=== PATIENT | male | born 1940 | race Caucasian/White ===

== ENCOUNTER 2023-06-22 17:28 | Emergency (ER) | payer OTHER ==
[2023-06-22 18:10] VITALS: BMI 22.3
[2023-06-22 19:16] LABS: HEMATOCRIT 31.5 % (35.4-49); MCHC 31.7 g/dl (32.0-35.9); MEAN CELL VOLUME 97.4 fl (80-96); MEAN PLT VOLUME 7.9 fl (7.5-11.1); PLATELET COUNT 669.2 10^3/uL (134-434); RBC 3.23 10^6/uL (4.00-5.60); RDW 16.6 % (11.9-15.9); WHITE BLOOD COUNT 10.3 10^3/uL (4.0-10.8)
[2023-06-22 19:31] LABS: ALBUMIN 3.8 g/dl (3.4-5.0); BILIRUBIN,TOTAL 0.6 mg/dl (0.2-1); CALCIUM 9.1 mg/dl (8.5-10.1); CREATININE 0.8 mg/dl (0.6-1.3); MAGNESIUM 2.1 mg/dL (1.8-2.4); POTASSIUM 4.5 mmol/L (3.5-5.1)
[2023-06-22 20:19] LABS: PLATELET ESTIMATE INCREASED
[2023-06-22 23:26] VITALS: BP 122/56; PULSE 72; RESP 18; TEMP 97.5
== END 2023-06-22 23:56 ==
LOC: FER 17:28
DX: S02.2XXA Fracture of nasal bones, initial encounter for closed fracture (principal); S09.90XA Unspecified injury of head, initial encounter; W19.XXXA Unspecified fall, initial encounter; Y92.9 Unspecified place or not applicable
CPT/HCPCS: 36415; 70450-TC; 70486-TC; 71045-TC-FY; 72125-TC; 72170-TC-FY; 80053; 83735; 84484; 85027; 93005; 99285-25

== ENCOUNTER 2023-08-18 14:29 | Observation (INO) | payer OTHER ==
[2023-08-18 16:01] VITALS: BMI 21.6
[2023-08-18 20:13] LABS: BASO % 1.3 % (0-2.0); HEMATOCRIT 32.2 % (35.4-49); HEMOGLOBIN 10.9 GM/dL (11.7-16.9); LYMPH % 14.2 % (8-40); MCH 31.8 pg (25.7-33.7); MCHC 33.8 g/dl (32.0-35.9); MEAN PLT VOLUME 7.2 fl (7.5-11.1); MONO % 6.1 % (3.8-10.2); NEUT % 75.4 % (42.8-82.8); PLATELET COUNT 893 10^3/uL (134-434); RBC 3.42 M/mm3 (4.00-5.60); WHITE BLOOD COUNT 10.6 K/mm3 (4.0-10.0)
[2023-08-18 20:40] LABS: POTASSIUM 4.9 mmol/L (3.5-5.1)
[2023-08-18 20:43] LABS: ALBUMIN 3.4 g/dl (3.4-5.0); ANISOCYTOSIS 3+; CALCIUM 9.2 mg/dL (8.5-10.1); MACROCYTOSIS 0; OVALOCYTE 1+
[2023-08-18 20:44] LABS: BLOOD UREA NITROGEN 23.8 mg/dL (7-18)
[2023-08-18 20:47] LABS: CREATININE 0.8 mg/dL (0.55-1.3)
[2023-08-18 20:48] LABS: BILIRUBIN,TOTAL 0.8 mg/dL (0.2-1); TOT PROT 6.6 g/dl (6.4-8.2)
[2023-08-18 20:54] LABS: INR 1.12 (0.83-1.09)
[2023-08-18 20:56] LABS: ACTIVATED PTT 27.2 SECONDS (25.2-36.5)
[2023-08-19 06:41] LABS: HEMATOCRIT 32.5 % (35.4-49); HEMOGLOBIN 10.9 GM/dL (11.7-16.9); MCH 31.9 pg (25.7-33.7); MCHC 33.4 g/dl (32.0-35.9); MEAN CELL VOLUME 95.3 fl (80-96); PLATELET COUNT 779 10^3/uL (134-434); RBC 3.42 M/mm3 (4.00-5.60); WHITE BLOOD COUNT 10.9 K/mm3 (4.0-10.0)
[2023-08-19 07:04] LABS: POTASSIUM 4.8 mmol/L (3.5-5.1)
[2023-08-19 07:05] LABS: CALCIUM 9.3 mg/dL (8.5-10.1); MAGNESIUM 2.5 mg/dL (1.8-2.4)
[2023-08-19 07:09] LABS: CREATININE 0.7 mg/dL (0.55-1.3)
[2023-08-19] MEDS ORDERED: LACTULOSE 20 GM/30 ML UDC (FOR ORAL USE ONLY) PO PRN (08:58)
[2023-08-19 09:04] LABS: ANISOCYTOSIS 0; MACROCYTOSIS 0
[2023-08-19] MEDS: traZODone HCL 50 MG TABLET (FP) PO SCH ×2 (11:49→21:09)
[2023-08-19] MEDS: ASPIRIN 81 MG CHEWABLE TABLETS PO SCH (11:49)
[2023-08-19] MEDS: LIDOCAINE 4% PATCH TP SCH (11:49)
[2023-08-19] MEDS: ASCORBIC ACID 250 MG TABLET (FP) PO SCH ×2 (11:50→21:09)
[2023-08-19] MEDS: CHOLECALCIFEROL (VIT D3) 1,000 UNIT (25 MCG) TABLET PO SCH (11:50)
[2023-08-19] MEDS: risperiDONE 0.5 MG TABLET PO SCH (11:50)
[2023-08-19] MEDS: MAGNESIUM HYDROX 2400MG/30ML ORAL SUSPENSION 30 ML CUP PO SCH (11:50)
[2023-08-19] MEDS: MULTIVITAMINS (DAILY MVI) TABLET (FP) PO SCH (11:50)
[2023-08-19] MEDS: SENNOSIDES 8.6MG TABLET (FP) PO SCH (11:50)
[2023-08-19] MEDS: VITAMINS A AND D TOPICAL OINTMENT 60 GM TUBE TP SCH ×2 (11:50→22:15)
[2023-08-19] MEDS ORDERED: DOCUSATE SODIUM 100 MG CAPSULE (FP) PO SCH (22:00)
[2023-08-19] MEDS ORDERED: LIDOCAINE PATCH REMOVAL MC SCH (22:00)
[2023-08-20 05:43] VITALS: TEMP 97.6
[2023-08-20 07:23] LABS: POTASSIUM 5.3 mmol/L (3.5-5.1)
[2023-08-20 07:29] LABS: ALBUMIN 3.1 g/dl (3.4-5.0); BLOOD UREA NITROGEN 24.6 mg/dL (7-18); CALCIUM 8.8 mg/dL (8.5-10.1); MAGNESIUM 2.4 mg/dL (1.8-2.4)
[2023-08-20 07:32] LABS: CREATININE 0.9 mg/dL (0.55-1.3)
[2023-08-20 07:33] LABS: BILIRUBIN,TOTAL 0.6 mg/dL (0.2-1); TOT PROT 6.1 g/dl (6.4-8.2)
[2023-08-20 07:38] LABS: HEMATOCRIT 32.6 % (35.4-49); HEMOGLOBIN 10.9 GM/dL (11.7-16.9); MCH 31.7 pg (25.7-33.7); MCHC 33.5 g/dl (32.0-35.9); MEAN CELL VOLUME 94.4 fl (80-96); MEAN PLT VOLUME 7.2 fl (7.5-11.1); PLATELET COUNT 892 10^3/uL (134-434); RBC 3.45 M/mm3 (4.00-5.60); RDW 17.4 % (11.9-15.9); WHITE BLOOD COUNT 10.4 K/mm3 (4.0-10.0)
[2023-08-20 09:05] LABS: ANISOCYTOSIS 0; MACROCYTOSIS 0
[2023-08-20 09:14] VITALS: BP 141/66; PULSE 70; RESP 18
[2023-08-20] MEDS: CHOLECALCIFEROL (VIT D3) 1,000 UNIT (25 MCG) TABLET PO SCH (09:24)
[2023-08-20] MEDS: ASPIRIN 81 MG CHEWABLE TABLETS PO SCH (09:24)
[2023-08-20] MEDS: MULTIVITAMINS (DAILY MVI) TABLET (FP) PO SCH (09:24)
[2023-08-20] MEDS: risperiDONE 0.5 MG TABLET PO SCH (09:24)
[2023-08-20] MEDS: traZODone HCL 50 MG TABLET (FP) PO SCH (09:24)
[2023-08-20] MEDS: SENNOSIDES 8.6MG TABLET (FP) PO SCH (09:24)
[2023-08-20] MEDS: ASCORBIC ACID 250 MG TABLET (FP) PO SCH (09:24)
[2023-08-20] MEDS: MAGNESIUM HYDROX 2400MG/30ML ORAL SUSPENSION 30 ML CUP PO SCH (09:25)
[2023-08-20] MEDS: LIDOCAINE 4% PATCH TP SCH (09:25)
[2023-08-20] MEDS: VITAMINS A AND D TOPICAL OINTMENT 60 GM TUBE TP SCH (09:36)
[2023-08-20] MEDS ORDERED: SODIUM ZIRCONIUM CYCLOSILICATE (LOKELMA) 5 GM PACKET PO SCH (10:00)
== END 2023-08-20 14:50 ==
LOC: JER 14:29 → JERBED 21:16 → J2W 08-19 15:52
PROVIDERS: ADMIT Internal Medicine; ATTEND Nurse Practitioner Acute Care
DX: Z04.3 Encounter for examination and observation following other accident (principal); D64.89 Other specified anemias; D75.839 Thrombocytosis, unspecified; W18.39XA Other fall on same level, initial encounter; Y93.89 Activity, other specified; Y92.099 Unspecified place in other non-institutional residence as the place of occurrence of the external cause; F03.90 Unspecified dementia, unspecified severity, without behavioral disturbance, psychotic disturbance, mood disturbance, and anxiety; Z29.89 Encounter for other specified prophylactic measures; Z86.79 Personal history of other diseases of the circulatory system; Z78.9 Other specified health status
CPT/HCPCS: 0241U-QW; 36415; 70450-TC; 71045-TC-FY; 72170-TC-FY; 73030-TC-LT-FY; 73030-TC-RT-FY; 80048; 80053; 82728; 83540; 83550; 83615; 83735; 84100; 84439; 84443; 84484; 85025; 85610; 85730; 86850; 86900; 86901; 93005; 93010; 93306-TC; 99285-25; G0378

== ENCOUNTER 2024-07-21 12:17 | Inpatient (IN) | payer OTHER ==
[2024-07-21 13:16] LABS: VENOUS BASE EXCESS 0.4 mmol/L (-2-2); VENOUS O2 SATURATION 32.1 % (70-80); VENOUS PCO2 58.9 mmHg (38-52); VENOUS PH 7.291 (7.310-7.410)
[2024-07-21 13:17] LABS: HEMATOCRIT 30.2 % (35.4-49); HEMOGLOBIN 9.6 GM/dL (11.7-16.9); MCHC 31.9 g/dl (32.0-35.9); MEAN CELL VOLUME 93.9 fl (80-96); MEAN PLT VOLUME 7.9 fl (7.5-11.1); PLATELET COUNT 828 10^3/uL (134-434); RBC 3.22 M/mm3 (4.00-5.60); RDW 19.2 % (11.9-15.9); WHITE BLOOD COUNT 14.6 K/mm3 (4.0-10.0)
[2024-07-21 13:25] LABS: INR 1.16 (0.83-1.09); PROTHROMBIN TIME (PATIENT) 13.1 SEC (9.7-13.0)
[2024-07-21 13:41] LABS: CHLORIDE 108 mmol/L (98-107); SODIUM 141 mmol/L (136-145)
[2024-07-21 13:43] LABS: ALBUMIN 2.8 g/dl (3.4-5.0); CALCIUM 9.4 mg/dL (8.5-10.1); CO2 29 mmol/L (21-32)
[2024-07-21 13:44] LABS: GLUCOSE,RANDOM 104 mg/dL (74-106)
[2024-07-21 13:46] LABS: SGPT/ALT 28 U/L (13-61)
[2024-07-21 13:47] LABS: CREATININE 1.1 mg/dL (0.55-1.3); SGOT/AST 81 U/L (15-37)
[2024-07-21 13:48] LABS: ANION GAP 3 mmol/L (4-13); BILIRUBIN,TOTAL 0.6 mg/dL (0.2-1); POTASSIUM 6.5 mmol/L (3.5-5.1); TOT PROT 6.3 g/dl (6.4-8.2)
[2024-07-21 13:49] LABS: ALK PHOS 79 U/L (45-117)
[2024-07-21 14:04] LABS: LACTIC ACID 2.5 mmol/L (0.4-2.0)
[2024-07-21 14:08] LABS: ANISOCYTOSIS 0; MACROCYTOSIS 0
[2024-07-21] MEDS: SODIUM CHLORIDE 0.9% 500 ML INFUS.BAG IV ONE (14:17)
[2024-07-21] MEDS ORDERED: VANCOMYCIN/WATER 1250 MG 1,250 MG/250 ML BAG IVPB ONE (14:20)
[2024-07-21] MEDS ORDERED: PIPERACILLIN/TAZOB 4.5 GM 4.5 GM/100 ML BAG IVPB ONE ×2 (14:20→19:02)
[2024-07-21] MEDS: LACTATED RINGERS SOLUTION 1000 ML INFUS.BAG IV ONE ×2 (14:40→15:52)
[2024-07-21] MEDS ORDERED: HYDROCORTISONE SOD SUCCINATE 100 MG/2 ML VIAL ONE (14:42)
[2024-07-21] MEDS: HYDROCORTISONE SOD SUCCINATE 100 MG/2 ML VIAL IVPUSH ONE (14:57)
[2024-07-21] MEDS: VANCOMYCIN/WATER 1250 MG 1,250 MG/250 ML BAG IVPB ONE (15:26)
[2024-07-21] MEDS: PIPERACILLIN/TAZOB 4.5 GM 4.5 GM in DEXTROSE 5%-WATER 100 ML IVPB ONE (15:26)
[2024-07-21 15:41] LABS: POTASSIUM 4.9 mmol/L (3.5-5.1)
[2024-07-21 15:45] LABS: ALBUMIN 2.7 g/dl (3.4-5.0); BLOOD UREA NITROGEN 50.2 mg/dL (7-18)
[2024-07-21 15:48] LABS: CREATININE 0.9 mg/dL (0.55-1.3)
[2024-07-21 15:49] LABS: BILIRUBIN,TOTAL 0.5 mg/dL (0.2-1)
[2024-07-21 15:50] LABS: TOT PROT 5.5 g/dl (6.4-8.2)
[2024-07-21 17:14] LABS: EPI CELLS 2 /uL (0-25.1); HYALINE CASTS 2 /uL (0-3.1); URINE APPEARANCE CLOUDY; URINE BACTERIA 3752 /uL (0-1359); URINE BILIRUBIN NEGATIVE (NEGATIVE); URINE COLOR ORANGE; URINE GLUCOSE (UA) NEGATIVE (NEGATIVE); URINE KETONE TRACE (NEGATIVE); URINE LEUK ESTERASE 3+ (NEGATIVE); URINE NITRITE NEGATIVE (NEGATIVE); URINE PROTEIN 1+ (NEGATIVE); URINE WBC 916 /uL (0-25.8)
[2024-07-21 17:45] LABS: URINE RBC 6203.8 /uL (0-23.9)
[2024-07-21] MEDS ORDERED: PIPERACILLIN/TAZOB 4.5 GM 4.5 GM in DEXTROSE 5%-WATER 100 ML IVPB SCH (18:00)
[2024-07-21 18:09] LABS: ALLENS TEST POSITIVE; ARTERIAL BLD GAS O2 SATURATION 95.3 % (95-98); ARTERIAL BLOOD GAS BASE EXCESS -0.5 mmol/L (-2-2); ARTERIAL BLOOD GAS PO2 75.6 mmHg (80-100); ARTERIAL BLOOD GAS pH 7.411 (7.350-7.450)
[2024-07-21] MEDS: LACTATED RINGERS SOLUTION 1,000 ML/1,000 ML INFUS.BAG IV SCH (18:10)
[2024-07-21] MEDS: NOREPINEPHRINE BITARTRATE 4,000 MCG in DEXTROSE 5%-WATER - 496 ML IV SCH (19:15)
[2024-07-21] MEDS: PIPERACILLIN/TAZOB 4.5 GM 4.5 GM in DEXTROSE 5%-WATER 100 ML IVPB SCH (19:21)
[2024-07-21] MEDS ORDERED: ALBUTEROL SO4 2.5/IPRATROPIUM 0.5 INH SOL 3 ML VIAL.NEB. NEB PRN (22:05)
[2024-07-21] MEDS ORDERED: DEXMEDETOMIDINE PREMIX 400 MCG/100 ML BAG IVPB ONE (22:25)
[2024-07-21 22:57] VITALS: BMI 18.0
[2024-07-21] MEDS: HEPARIN NA (PORCINE) 5,000 UNITS/ML 1ML VIAL SQ SCH (23:45)
[2024-07-21] MEDS: HYDROCORTISONE SOD SUCCINATE 100 MG/2 ML VIAL IVPB SCH (23:45)
[2024-07-21] MEDS: DEXMEDETOMIDINE PREMIX 400 MCG/100 ML BAG IVPB SCH (23:57)
[2024-07-21] MEDS: NOREPINEPHRINE BITARTRATE/D5W 8 MG/250 ML BAG IVPB SCH (23:57)
[2024-07-22 00:14] LABS: ARTERIAL BLD GAS O2 SATURATION 98.8 % (95-98); ARTERIAL BLOOD GAS BASE EXCESS -0.8 mmol/L (-2-2); ARTERIAL BLOOD GAS PO2 137.3 mmHg (80-100); ARTERIAL BLOOD GAS pH 7.422 (7.350-7.450)
[2024-07-22 00:15] LABS: ALLENS TEST POSITIVE
[2024-07-22] MEDS ORDERED: VASopressin 20 UNITS/ML VIAL IV ONE (00:29)
[2024-07-22 00:42] LABS: HEMATOCRIT 30.6 % (35.4-49); HEMOGLOBIN 9.5 GM/dL (11.7-16.9); MCH 29.2 pg (25.7-33.7); MCHC 31.2 g/dl (32.0-35.9); MEAN CELL VOLUME 93.4 fl (80-96); PLATELET COUNT 1087 10^3/uL (134-434); RBC 3.27 M/mm3 (4.00-5.60); RDW 18.8 % (11.9-15.9); WHITE BLOOD COUNT 11.3 K/mm3 (4.0-10.0)
[2024-07-22 00:43] LABS: POTASSIUM 4.8 mmol/L (3.5-5.1)
[2024-07-22 00:45] LABS: ALBUMIN 2.4 g/dl (3.4-5.0); CALCIUM 8.7 mg/dL (8.5-10.1); MAGNESIUM 1.7 mg/dL (1.8-2.4)
[2024-07-22 00:48] LABS: PHOSPHOROUS 3.2 mg/dL (2.5-4.9)
[2024-07-22 00:49] LABS: CREATININE 0.8 mg/dL (0.55-1.3)
[2024-07-22 00:50] LABS: BILIRUBIN,TOTAL 0.6 mg/dL (0.2-1); TOT PROT 5.3 g/dl (6.4-8.2)
[2024-07-22] MEDS ORDERED: NOREPINEPHRINE BITARTRATE 4 MG/4 ML ML IV ONE ×2 (01:17→04:55)
[2024-07-22 02:27] LABS: INR 1.22 (0.83-1.09); PROTHROMBIN TIME (PATIENT) 13.7 SEC (9.7-13.0)
[2024-07-22 02:30] LABS: ACTIVATED PTT 37.4 SECONDS (25.2-36.5)
[2024-07-22] MEDS: VANCOMYCIN/WATER 1250 MG 1,250 MG/250 ML BAG IVPB SCH (02:39)
[2024-07-22 03:05] LABS: ANISOCYTOSIS 2+; MACROCYTOSIS 1+; OVALOCYTE 1+
[2024-07-22] MEDS ORDERED: VANCOMYCIN/WATER 1250 MG 1,250 MG/250 ML BAG IVPB SCH (03:30)
[2024-07-22] MEDS ORDERED: PHENYLEPHRINE HCL 10 MG/1 ML SINGLE DOSE VIAL ONE ×2 (04:21→04:27)
[2024-07-22] MEDS: PHENYLEPHRINE NS PREMIX 50,000 MCG/500 ML BAG IVPB SCH (04:28)
[2024-07-22] MEDS: VASopressin 40 UNITS/100 ML BAG IV SCH (05:08)
[2024-07-22 06:02] LABS: ARTERIAL BLD GAS O2 SATURATION 52.9 % (95-98); ARTERIAL BLOOD GAS BASE EXCESS -21.4 mmol/L (-2-2); ARTERIAL BLOOD GAS PO2 47.3 mmHg (80-100)
[2024-07-22 06:08] LABS: ALLENS TEST POSITIVE
[2024-07-22 06:58] LABS: ARTERIAL BLOOD GAS pH 6.872 (7.350-7.450)
[2024-07-22 07:02] LABS: INR 2.07 (0.83-1.09); PROTHROMBIN TIME (PATIENT) 22.9 SEC (9.7-13.0)
[2024-07-22 07:03] VITALS: TEMP 98.7
[2024-07-22 07:25] LABS: MAGNESIUM 2.2 mg/dL (1.8-2.4)
[2024-07-22 07:27] LABS: N-TERMINAL BNP 18230.9 pg/ml (5-450)
[2024-07-22 07:29] LABS: PHOSPHOROUS 7.7 mg/dL (2.5-4.9)
[2024-07-22] MEDS ORDERED: PANTOPRAZOLE SODIUM 40 MG VIAL IVPUSH SCH (10:00)
[2024-07-22] MEDS ORDERED: MUPIROCIN 2% TOPICAL OINTMENT FOR DECOLONIZATION NS SCH (10:00)
[2024-07-22 11:06] VITALS: BP 52/24; PULSE 67; RESP 27
[2024-07-22] MEDS ORDERED: CHLORHEXIDINE GLUCONATE 4% CLEANSER FOR DECOLONIZATION TP SCH (22:00)
== END 2024-07-22 07:50 | disposition expired | DRG 871 ==
LOC: JER 12:17 → JERBED 15:43 → JICU 20:48
PROVIDERS: ADMIT Internal Medicine; ATTEND Internal Medicine Pulmonary Disease
PROC: 4A133B1 Monitoring of Arterial Pressure, Peripheral, Percutaneous Approach (ICD-10-PCS; principal; 2024-07-22)
PROC: 4A133J1 Monitoring of Arterial Pulse, Peripheral, Percutaneous Approach (ICD-10-PCS; 2024-07-22)
PROC: 05HM33Z Insertion of Infusion Device into Right Internal Jugular Vein, Percutaneous Approach (ICD-10-PCS; 2024-07-22)
PROC: B543ZZA Ultrasonography of Right Jugular Veins, Guidance (ICD-10-PCS; 2024-07-22)
DX: A41.89 Other specified sepsis (principal); J18.9 Pneumonia, unspecified organism; J96.01 Acute respiratory failure with hypoxia; R65.21 Severe sepsis with septic shock; J96.02 Acute respiratory failure with hypercapnia; Z68.1 Body mass index [BMI] 19.9 or less, adult; R64 Cachexia; N17.9 Acute kidney failure, unspecified; R62.7 Adult failure to thrive; R68.0 Hypothermia, not associated with low environmental temperature; R41.82 Altered mental status, unspecified; Z66 Do not resuscitate
CPT/HCPCS: 0241U-QW; 36415; 36600; 71045-TC-FY; 80053; 81003; 82550; 82553; 82728; 82803; 82962; 83605; 83690; 83735; 83880; 84100; 84436; 84484; 85025; 85610; 85730; 87040; 87086; 87481; 93005; 93010; 99285-25; J1644; J3490